=== PATIENT | female | born 1955 ===

== ENCOUNTER 2018-04-04 07:36 | Emergency (ER) | payer MEDICAID ==
[2018-04-04 07:46] VITALS: RESP 18
[2018-04-04 07:55] VITALS: BMI 22.8
[2018-04-04] MEDS ORDERED: Famotidine 20mg/50ml 20 MG/50 ML BAG IVPB STA (07:57)
[2018-04-04] MEDS ORDERED: Sodium Chloride 0.9% 1,000 ML IV SCH (08:00)
--- NOTE | 2018-04-04 08:02 | ED PDOC ---
Arrival/HPI - General Chief Complaint: GI Problem Time Seen by Provider: 04/04/18 07:41 Historian: Patient - History of Present Illness Narrative History of Present Illness (Text): 04/04/18 07:57 62 year old female, whose past medical history includes hypertension and migraines, presents to the emergency department complaining of generalized weakness, headache, body aches, and abdominal pain. Patient states yesterday afternoon she began feeling weak, a headache with associated photophobia, and then her back and neck began hurting. Patient reports she hasn't eaten since yesterday because of the abdominal pain and associated watery diarrhea, nausea, and chills that began yesterday as well. She denies dizziness, shortness of breath, dyspnea on exertion, cough, vomiting, or any other complaint. Time/Duration: 24 hours Symptom Onset: Gradual Symptom Course: Unchanged Activities at Onset: Light Context: Home Past Medical History - Provider Review Nursing Documentation Reviewed: Yes - Infectious Disease Hx of Infectious Diseases: None - Reproductive Menopause: Yes - Cardiac Hx Cardiac Disorders: Yes Hx Hypertension: Yes - Psychiatric Hx Anxiety: Yes Hx Bipolar Disorder: Yes Hx Depression: Yes Hx Substance Use: No - Anesthesia Hx Anesthesia: No Family/Social History - Physician Review Nursing Documentation Reviewed: Yes Family/Social History: No Known Family HX Smoking Status: Heavy Smoker > 10 Cigarettes Daily Hx Alcohol Use: No Hx Substance Use: No Allergies/Home Meds Allergies/Adverse Reactions: Allergies No Known Allergies Allergy (Verified 02/02/15 16:28) Review of Systems - Physician Review All systems were reviewed & negative as marked: Yes - Review of Systems Constitutional: Other (chills) Eyes: Photophobia Respiratory: absent: SOB, Cough Gastrointestinal: Abdominal Pain, Diarrhea (watery), Nausea. absent: Vomiting Genitourinary Female: absent: Dysuria Musculoskeletal: Back Pain, Neck Pain Neurological: Headache. absent: Dizziness Physical Exam - Physical Exam Narrative Physical Exam (Text): 04/04/18 07:56 Gen: VS reviewed, alert, well developed, well nourished, nontoxic, mild distress. ENT: normal pharynx. Eye: EOMI, photobophobia Neck: no JVD, no adenopathy. posterior cervical spine tenderness CV: regular rate, regular rhythm, no rubs, no murmur, no gallops, S1, S2, pulses equal and strong. Pulm: no distress, clear to auscultation, no wheeze, no rhonchi, breath sounds equal, no rales. Abd: soft, diffuse abdominal tenderness, no guarding, no rebound, no rigidity, normal bowel sounds. Ext: no edema. left shoulder tenderness. Skin: good color, no rash, no cyanosis. Psych: responds appropriately to questions, normal affect. Neuro: oriented x 3, CN2-12 intact grossly, motor intact, sensation intact. Vital Signs Reviewed: Yes Vital Signs Temp Pulse Resp BP Pulse Ox 04/04/18 07:45 98.3 F 82 18 133/77 99 Temperature: Afebrile Blood Pressure: Normal Pulse: Regular Respiratory Rate: Normal Appearance: Positive for: Well-Appearing, Non-Toxic, Comfortable Pain Distress: None Mental Status: Positive for: Alert and Oriented X 3 Medical Decision Making ED Course and Treatment: 04/04/18 07:56 Impression: 62 year old female who presents to the emergency department complaining of headache, abdominal pain, generalized weakness, and body aches. Plan: -- EKG -- Labs -- Pepcid -- Reglan -- IV fluids -- Toradol -- Rapid Flu A/B -- Reassess and disposition Progress Notes: 04/04/18 11:21 patient seen for multiple physical complaints. clinical presentation suggestive of viral syndrome/illness. abdominal pain and body aches have resolved. headache significantly improved and neck pain significantly improved. patient did not exhibit any meningismus but admits that she has a hx of cervical herniated discs. i have discussed with the patient the possibility of current headache pattern stemming from a more serious underlying illness which would warrant CT imaging and spinal tap. Patient does not want to proceed with spinal tap. Clinically, it appears that meningitis or SAH is unlikely given the multitude of symptoms. Patient feels much better at this time and appears stable for discharge and is agreeable with plan and to follow up with her neurologist and to return immediuately for any new or worsening symptoms. - EKG Interpretation EKG Interpretation (Text): 04/04/18 08:12 EKG performed at 7:40 reviewed by me, shows: NSR at 84 bpm with normal qrs, normal axis, no acute ST/T wave abnormalities. Interpreted by ED Physician: Yes Type: 12 lead EKG - Scribe Statement The provider has reviewed the documentation as recorded by the Gagandeep Greenwood Provider Scribe Attestation: All medical record entries made by the Kareyibdonald were at my direction and personally dictated by me. I have reviewed the chart and agree that the record accurately reflects my personal performance of the history, physical exam, medical decision making, and the department course for this patient. I have also personally directed, reviewed, and agree with the discharge instructions and disposition. Disposition/Present on Arrival - Present on Arrival Any Indicators Present on Arrival: No History of DVT/PE: No History of Uncontrolled Diabetes: No Urinary Catheter: No History of Decub. Ulcer: No History Surgical Site Infection Following: None - Disposition Have Diagnosis and Disposition been Completed?: Yes Diagnosis: Viral syndrome, Migraine Disposition: HOME/ ROUTINE Disposition Time: 11:27 Patient Plan: Discharge Condition: STABLE Discharge Instructions (ExitCare): Viral Syndrome (DC) Additional Instructions: please do not hesitate to return for any new or worsening symptoms. follow up with your neurologist as soon as possible-call today to make an appointment. Prescriptions: Lidocaine 5% [Lidoderm] 1 ea TD Q12H #14 patch Ondansetron [Zofran] 4 mg PO Q8H #12 tab Forms: [employer] (Malay)
[2018-04-04 08:21] LABS: HEMOGLOBIN 12.9 g/dL (12.0-16.0); LYMPH # 0.7 (1.2-3.4); LYMPH % 12.7 % (22.0-35.0); MEAN CELL VOLUME 82.2 fl (80.0-105.0); MEAN CORPUSCULAR HEMOGLOBIN 29.1 pg (25.0-35.0); MEAN CORPUSCULAR HGB CONC 35.4 g/dl (31.0-37.0); MEAN PLATELET VOLUME 9.1 fl (7.0-11.0); MONO # 0.3 (0.1-0.6); MONO % 5.4 % (1.0-6.0); RBC 4.43 10^6/uL (3.5-6.1); RED CELL DISTRIBUTION WIDTH 13.5 % (11.5-14.5); WHITE BLOOD COUNT 5.7 10^3/uL (4.5-11.0)
[2018-04-04 08:34] LABS: ALB/GLOB RATIO 1.6 (1.1-1.8); ALBUMIN 4.7 g/dL (3.0-4.8); ALT/SGPT 38 U/L (7-56); AST/SGOT 36 U/L (14-36); BLOOD UREA NITROGEN 15 mg/dL (7-21); CALCIUM 9.2 mg/dL (8.4-10.5); GFR NON-AFRICAN AMERICAN > 60; LIPASE 39 U/L (23-300)
[2018-04-04 11:39] VITALS: BP 109/67; PULSE 77; TEMP 98; O2SAT 99
--- NOTE | 2018-04-04 13:32 | RAD ---
Date of service: 04/04/2018 HISTORY: chest pain COMPARISON: No prior. FINDINGS: LUNGS: No infiltrate. Few small calcified granulomas in right upper lobe. PLEURA: No significant pleural effusion identified, no pneumothorax apparent. CARDIOVASCULAR: No aortic atherosclerotic calcification present. Normal cardiac size. No pulmonary vascular congestion. OSSEOUS STRUCTURES: No significant abnormalities. VISUALIZED UPPER ABDOMEN: Normal. OTHER FINDINGS: None. IMPRESSION: No active disease.
--- NOTE | 2018-04-04 17:56 | CARD ---
APPROVED REPORT Date of service: 04/04/2018 EKG Measurement Heart [id number] <Conclusion> Normal sinus rhythm Nonspecific ST abnormality Abnormal ECG
== END 2018-04-04 11:39 | disposition home or self-care (01) ==
LOC: ED 07:36
DX: B34.9 Viral infection, unspecified (principal); G43.909 Migraine, unspecified, not intractable, without status migrainosus; I10 Essential (primary) hypertension; F17.210 Nicotine dependence, cigarettes, uncomplicated
CPT/HCPCS: 71045; 80053; 83690; 85025; 87804; 93005; 96361; 96365; 96375; 99284; J1100; J1885; J2765; J7030

== ENCOUNTER 2018-06-02 09:09 | Outpatient (CLI) | payer MEDICAID | END 2018-06-02 09:10 | disposition home or self-care (01) | LOC: RAD 09:09 | DX: Z12.31 Encounter for screening mammogram for malignant neoplasm of breast (principal) ==